=== PATIENT | female | born 1945 | race Two or more races ===

== ENCOUNTER 2024-08-30 17:46 | Inpatient (IN) | payer OTHER ==
[~2024-08-30] VITALS: Ht 162.6 cm; Wt 159.7 kg
--- NOTE | 2024-08-30 18:07 | NUR ---
SE RECIBE PACIENTE ALERTA Y ORIENTADA X3 EN AMBULANCIA; LA MISMA INDICA QUE COMENZO A SANGRAR POR EL SENO DERECHO MIENTRAS LE REALIZABAN EL CAMBIO DE VENDAJE. EN ADICION REFIERE TENER LA PRESION NILA. PARAMEDICO INDICA QUE SE ADMINSITRO VASOTEC 2.5 MG. PACIENTE DE MONK JONES
[2024-08-30] MEDS ORDERED: MEPERIDINE HCL/PF 25 MG/ML VIAL IV PRN (19:00)
[2024-08-30] MEDS ORDERED: 0.9 % SODIUM CHLORIDE 1,000 ML IV SCH (19:00)
[2024-08-30] MEDS ORDERED: AMINOCAPROIC ACID 250 MG/ML VIAL IV STA (19:00)
[2024-08-30] MEDS ORDERED: CLONAZEPAM 1 MG TABLET PO SCH (21:00)
[2024-08-30 21:58] LABS: HEMATOCRIT 31.6 % (36.0-45.00); HEMOGLOBIN 10.6 g/dL (12.0-15.00); MEAN CELL VOLUME 88.1 fL (80.00-100.00); MEAN CORPUSCULAR HEMOGLOBIN 29.5 pg (27.00-32.0); MEAN CORPUSCULAR HGB CONC 33.5 g/dl (32.0-36.0); PLATELET COUNT 272 K/uL (150-450); RED BLOOD COUNT 3.59 M/uL (4.00-6.00); RED CELL DISTRIBUTION WIDTH 17.5 % (11.5-14.5)
[2024-08-30 22:18] LABS: PARTIAL THROMBOPLASTIN TIME 25.8 SECONDS (22.0-34.0); PROTHROMBIN TIME 10.9 SECONDS (9.0-11.5)
[2024-08-30 22:20] LABS: CALCIUM 9.6 mg/dL (8.5-10.1); CREATININE SERUM 0.61 mg/dL (0.55-1.02); GFR 94.86; POTASSIUM 4.08 mEq/L (3.5-5.1)
[2024-08-31] MEDS ORDERED: AMINOCAPROIC ACID 250 MG/ML VIAL IV SCH (01:00)
[2024-08-31 08:17] VITALS: BP 123/73; O2SAT 96
[2024-08-31] MEDS ORDERED: SOD FERRIC GLUC COMPLX/SUCROSE 125 MG in 0.9 % SODIUM CHLORIDE 100 ML IV SCH (09:00)
[2024-08-31] MEDS ORDERED: AMINOCAPROIC ACID 20 MG/ML ML IV SCH (17:00)
[2024-08-31 17:12] VITALS: BP 127/70
[2024-09-01 01:49] VITALS: BP 114/64; O2SAT 96
[2024-09-01 07:50] VITALS: BP 116/66; O2SAT 97
[2024-09-01] MEDS ORDERED: CIPROFLOXACIN IN 5 % DEXTROSE 400 MG/200 ML PIGGYBAG IV STA (15:30)
[2024-09-01 16:55] VITALS: BP 137/73
[2024-09-01] MEDS ORDERED: CIPROFLOXACIN IN 5 % DEXTROSE 400 MG/200 ML PIGGYBAG IV SCH (17:00)
[2024-09-01] MEDS ORDERED: TEMAZEPAM 15 MG CAPSULE PO SCH (21:00)
[2024-09-02 03:00] VITALS: BP 126/76; O2SAT 95
[2024-09-02 08:15] VITALS: BP 110/65
[2024-09-02 16:21] VITALS: BP 162/81; O2SAT 98
[2024-09-02] MEDS ORDERED: VANCOMYCIN HCL 1,000 MG VIAL IV SCH (21:00)
[2024-09-03] MEDS ORDERED: CIPROFLOXACIN IN 5 % DEXTROSE 400 MG/200 ML PIGGYBAG IV SCH (01:00)
[2024-09-03 01:33] VITALS: BP 139/82; O2SAT 98
[2024-09-03 08:39] LABS: HEMATOCRIT 26.1 % (36.0-45.00); MEAN CELL VOLUME 89.7 fL (80.00-100.00); MEAN CORPUSCULAR HGB CONC 34.6 g/dl (32.0-36.0); PLATELET COUNT 251 K/uL (150-450); RED BLOOD COUNT 2.91 M/uL (4.00-6.00); RED CELL DISTRIBUTION WIDTH 16.6 % (11.5-14.5)
[2024-09-03 08:45] VITALS: BP 119/75
[2024-09-03 09:12] LABS: ALBUMIN 2.7 gm/dL (3.4-5.0); BILIRUBIN TOTAL 0.34 mg/dL (0.3-1.2); CALCIUM 8.3 mg/dL (8.5-10.1); CREATININE SERUM 0.53 mg/dL (0.55-1.02); GFR 111.57; GLOBULINA 3.2 G/DL (2.4-3.5); MAGNESIUM 1.7 mg/dL (1.8-2.4); PHOSPHOROUS 3.6 mg/dL (2.5-4.9); POTASSIUM 4.06 mEq/L (3.5-5.1); TOTAL PROTEIN 5.9 gm/dL (6.4-8.2)
[2024-09-03 09:21] LABS: C-REACTIVE PROTEIN 0.98 MG/DL (0.00-0.29)
[2024-09-03 16:39] VITALS: BP 124/72
[2024-09-03] MEDS ORDERED: AMPICILLIN SODIUM/SULBACTAM NA 3,000 MG in 0.9 % SODIUM CHLORIDE 100 ML IV SCH (17:00)
[2024-09-04 01:42] VITALS: BP 106/51; O2SAT 98
[2024-09-04 09:43] VITALS: BP 144/71; O2SAT 98
[2024-09-04] MEDS ORDERED: CHLORHEXIDINE GLUCONATE 120 ML BOTTLE TOP SCH (17:00)
[2024-09-04] MEDS ORDERED: MUPIROCIN 22 GM OINT..GM TUBE NASAL SCH (17:00)
[2024-09-04 17:33] VITALS: BP 139/70
[2024-09-05 03:51] VITALS: BP 128/62
[2024-09-05 09:28] VITALS: BP 116/63
[2024-09-05 18:09] VITALS: BP 131/73
[2024-09-06 02:23] VITALS: BP 125/70; O2SAT 96
[2024-09-06 05:52] LABS: ALBUMIN 2.7 gm/dL (3.4-5.0); BILIRUBIN TOTAL 0.26 mg/dL (0.3-1.2); CALCIUM 8.9 mg/dL (8.5-10.1); CREATININE SERUM 0.6 mg/dL (0.55-1.02); GFR 96.68; GLOBULINA 3.3 G/DL (2.4-3.5); MAGNESIUM 1.6 mg/dL (1.8-2.4); PHOSPHOROUS 3.2 mg/dL (2.5-4.9); POTASSIUM 4.07 mEq/L (3.5-5.1)
[2024-09-06 05:53] LABS: C-REACTIVE PROTEIN 0.54 MG/DL (0.00-0.29)
[2024-09-06 06:04] LABS: HEMATOCRIT 27.7 % (36.0-45.00); HEMOGLOBIN 9.2 g/dL (12.0-15.00); MEAN CORPUSCULAR HGB CONC 33.4 g/dl (32.0-36.0); PLATELET COUNT 281 K/uL (150-450); RED BLOOD COUNT 3.07 M/uL (4.00-6.00); RED CELL DISTRIBUTION WIDTH 16.5 % (11.5-14.5)
[2024-09-06 09:26] VITALS: BP 120/72; O2SAT 98
[2024-09-06] MEDS ORDERED: MAGNESIUM SULFATE/D5W 100 ML IV NR (16:45)
[2024-09-06 17:56] VITALS: BP 160/89; O2SAT 100
[2024-09-07 01:54] VITALS: BP 159/84
[2024-09-07] MEDS ORDERED: AMPICILLIN SODIUM/SULBACTAM NA 3,000 MG VIAL ONE (07:51)
[2024-09-07 09:10] VITALS: BP 116/63; O2SAT 97
[2024-09-07 17:53] VITALS: BP 135/73
[2024-09-08 02:07] VITALS: BP 123/67; O2SAT 95
[2024-09-08 08:26] LABS: HEMATOCRIT 29.2 % (36.0-45.00); HEMOGLOBIN 9.9 g/dL (12.0-15.00); MEAN CELL VOLUME 88.9 fL (80.00-100.00); MEAN CORPUSCULAR HEMOGLOBIN 30.3 pg (27.00-32.0); MEAN CORPUSCULAR HGB CONC 34.1 g/dl (32.0-36.0); PLATELET COUNT 362 K/uL (150-450); RED BLOOD COUNT 3.29 M/uL (4.00-6.00); RED CELL DISTRIBUTION WIDTH 16.6 % (11.5-14.5)
[2024-09-08 09:02] LABS: CREATININE SERUM 0.63 mg/dL (0.55-1.02); GFR 91.39; MAGNESIUM 1.9 mg/dL (1.8-2.4); PHOSPHOROUS 3.8 mg/dL (2.5-4.9); POTASSIUM 4.29 mEq/L (3.5-5.1)
[2024-09-08 09:43] VITALS: BP 113/76; O2SAT 98
[2024-09-08 18:25] VITALS: BP 148/81
[2024-09-09 01:59] VITALS: BP 137/80; O2SAT 98
[2024-09-09 09:23] VITALS: BP 132/88; O2SAT 98
[2024-09-09 17:59] VITALS: BP 128/76; O2SAT 98
[2024-09-10 00:46] VITALS: BP 128/68; O2SAT 98
[2024-09-10 08:32] VITALS: BP 131/68
[2024-09-10 17:54] VITALS: BP 138/75
[2024-09-11 02:55] VITALS: BP 125/65
[2024-09-11 08:30] VITALS: BP 107/75
[2024-09-11 17:39] VITALS: BP 140/87; O2SAT 98
[2024-09-12 02:27] VITALS: BP 126/66; O2SAT 97
[2024-09-12 07:00] LABS: HEMATOCRIT 24.2 % (36.0-45.00); MEAN CELL VOLUME 89.6 fL (80.00-100.00); MEAN CORPUSCULAR HGB CONC 34.9 g/dl (32.0-36.0); PLATELET COUNT 268 K/uL (150-450); RED CELL DISTRIBUTION WIDTH 16.8 % (11.5-14.5)
[2024-09-12 07:24] LABS: MEAN CORPUSCULAR HEMOGLOBIN 31.1 pg (27.00-32.0)
[2024-09-12 07:25] LABS: HEMOGLOBIN 8.4 g/dL (12.0-15.00)
[2024-09-12 08:33] VITALS: BP 142/72
[2024-09-12] MEDS ORDERED: FUROsemide 20 MG/2 ML VIAL IV SCH (19:45)
[2024-09-12 21:26] VITALS: BP 145/76; O2SAT 99
[2024-09-13 01:43] VITALS: BP 142/63
[2024-09-13 09:15] VITALS: BP 137/74
[2024-09-13 17:48] VITALS: BP 160/77; O2SAT 100
[2024-09-14 02:26] VITALS: BP 138/74
[2024-09-14 07:22] LABS: HEMATOCRIT 35.8 % (36.0-45.00); HEMOGLOBIN 12.3 g/dL (12.0-15.00); MEAN CORPUSCULAR HEMOGLOBIN 29.5 pg (27.00-32.0); MEAN CORPUSCULAR HGB CONC 34.3 g/dl (32.0-36.0); PLATELET COUNT 258 K/uL (150-450); RED BLOOD COUNT 4.16 M/uL (4.00-6.00)
[2024-09-14 07:30] LABS: RED CELL DISTRIBUTION WIDTH 21.2 % (11.5-14.5)
[2024-09-14 08:22] VITALS: BP 136/85
[2024-09-14] MEDS ORDERED: ENALAPRILAT DIHYDRATE 1.25 MG/ML VIAL IV PRN (12:15)
[2024-09-14 18:18] VITALS: BP 129/74; O2SAT 97
[2024-09-14] MEDS ORDERED: CLONAZEPAM 1 MG TABLET PO ONE (22:00)
[2024-09-15 00:41] VITALS: BP 132/80; O2SAT 96
[2024-09-15 14:44] VITALS: BP 153/81
[2024-09-15 16:05] VITALS: BP 150/84; O2SAT 97
[2024-09-16 01:23] VITALS: BP 120/75; O2SAT 98
[2024-09-16 08:32] VITALS: BP 113/71; O2SAT 97
[2024-09-16 17:16] VITALS: BP 165/83
== END 2024-09-16 18:19 | disposition home or self-care (01) | DRG 599 ==
LOC: ER 17:46 → MEDI 21:20 → MEDJ 09-02 14:53
PROVIDERS: Internal Medicine Infectious Disease; ADMIT Internal Medicine Hematology & Oncology; ATTEND Internal Medicine Hematology & Oncology
PROC: 02HV33Z Insertion of Infusion Device into Superior Vena Cava, Percutaneous Approach (ICD-10-PCS; 2024-09-03)
PROC: 8E0ZXY6 Isolation (ICD-10-PCS; 2024-09-04)
PROC: B54MZZZ Ultrasonography of Right Upper Extremity Veins (ICD-10-PCS; principal; 2024-09-12)
PROC: 30233L1 Transfusion of Nonautologous Fresh Plasma into Peripheral Vein, Percutaneous Approach (ICD-10-PCS; 2024-09-13)
PROC: 30233N1 Transfusion of Nonautologous Red Blood Cells into Peripheral Vein, Percutaneous Approach (ICD-10-PCS; 2024-09-13)
DX: C50.811 Malignant neoplasm of overlapping sites of right female breast (principal); S21.001A Unspecified open wound of right breast, initial encounter; Y65.8 Other specified misadventures during surgical and medical care; Z17.0 Estrogen receptor positive status [ER+]; D50.0 Iron deficiency anemia secondary to blood loss (chronic); I10 Essential (primary) hypertension; B96.5 Pseudomonas (aeruginosa) (mallei) (pseudomallei) as the cause of diseases classified elsewhere; B95.61 Methicillin susceptible Staphylococcus aureus infection as the cause of diseases classified elsewhere

== ENCOUNTER → 2024-09-25 | Outpatient (CLI) | payer OTHER ==
[2024-09-25 10:26] LABS: HEMATOCRIT 36.9 % (36.0-45.00); HEMOGLOBIN 12.1 g/dL (12.0-15.00); MEAN CELL VOLUME 88.8 fL (80.00-100.00); MEAN CORPUSCULAR HEMOGLOBIN 29.1 pg (27.00-32.0); MEAN CORPUSCULAR HGB CONC 32.8 g/dl (32.0-36.0); PLATELET COUNT 253 K/uL (150-450); RED BLOOD COUNT 4.15 M/uL (4.00-6.00); RED CELL DISTRIBUTION WIDTH 18.5 % (11.5-14.5)
[2024-09-25 11:10] LABS: ALBUMIN 3.4 gm/dL (3.4-5.0); BILIRUBIN TOTAL 0.4 mg/dL (0.3-1.2); CALCIUM 9.6 mg/dL (8.5-10.1); CHOL HDL RATIO 2.1 (0-5.0); CREATININE SERUM 0.59 mg/dL (0.55-1.02); GFR 98.58; GLOBULINA 3.8 G/DL (2.4-3.5); POTASSIUM 4.47 mEq/L (3.5-5.1); T4 TOTAL 8.7 UG/DL (4.8-13.9); TOTAL PROTEIN 7.2 gm/dL (6.4-8.2); TSH 2.74 uIU/mL (0.358-3.74)
[2024-09-25 11:51] LABS: T3 TOTAL 1.31 ng/ml (0.846-2.02); VITAMIN D3 25 HYDROXY 36.38 ng/ml (30-120)
[2024-09-25 11:55] LABS: ob NEGATIVE (NEGATIVE)
== END | disposition home or self-care (01) ==
LOC: LAB 09:18
PROVIDERS: ATTEND Internal Medicine Cardiovascular Disease
DX: I10 Essential (primary) hypertension (principal); E11.9 Type 2 diabetes mellitus without complications; E03.9 Hypothyroidism, unspecified; E78.2 Mixed hyperlipidemia; D64.0 Hereditary sideroblastic anemia; E55.9 Vitamin D deficiency, unspecified; M81.0 Age-related osteoporosis without current pathological fracture

== ENCOUNTER → 2024-12-19 11:20 | Outpatient (CLI) | payer OTHER ==
[2024-12-19 12:00] LABS: HEMATOCRIT 28.7 % (36.0-45.00); HEMOGLOBIN 9.7 g/dL (12.0-15.00); MEAN CELL VOLUME 99.3 fL (80.00-100.00); MEAN CORPUSCULAR HEMOGLOBIN 33.6 pg (27.00-32.0); MEAN CORPUSCULAR HGB CONC 33.8 g/dl (32.0-36.0); PLATELET COUNT 320 K/uL (150-450); RED BLOOD COUNT 2.89 M/uL (4.00-6.00); RED CELL DISTRIBUTION WIDTH 19.8 % (11.5-14.5)
[2024-12-19 12:48] LABS: CALCIUM 8.9 mg/dL (8.5-10.1); CHOL HDL RATIO 2.4 (0-5.0); CREATININE SERUM 0.75 mg/dL (0.55-1.02); GFR 74.73; POTASSIUM 4.7 mEq/L (3.5-5.1)
[2024-12-19 13:07] LABS: T4 TOTAL 7.32 UG/DL (4.8-13.9); TSH 1.3 uIU/mL (0.358-3.74)
[2024-12-19 16:20] LABS: PH,URINE 5.5 (5.0-8.0); URINE APPEARANCE Clear; URINE BILIRRUBIN Negative (NEGATIVE); URINE BLOOD Negative; URINE COLOR Yellow; URINE GLUCOSE Negative (NEGATIVE); URINE KETONE Negative (NEGATIVE); URINE LEUKOCYTE Small; URINE NITRATE Negative; URINE PROTEIN Negative (NEGATIVE); URINE UROBILINOGEN 0.2 E.U./dl
[2024-12-19 16:21] LABS: URINE BACTERIA 68.5 uL (0.0-1933); URINE EPITHELIAL CELLS 4.9 uL (0.0-38.8); URINE RBC 2.6 uL (0.0-20.8)
[2024-12-19 16:51] LABS: URINE CAST 1.32 uL (0.0-1.40)
== END | disposition home or self-care (01) ==
LOC: LAB 11:20
PROVIDERS: ATTEND Internal Medicine Cardiovascular Disease
DX: E11.9 Type 2 diabetes mellitus without complications (principal); I10 Essential (primary) hypertension; E78.2 Mixed hyperlipidemia; E03.9 Hypothyroidism, unspecified

== ENCOUNTER → 2025-01-11 10:19 | Outpatient (CLI) | payer OTHER ==
[2025-01-11 11:33] LABS: EOS # 0.06 (0.04-0.54); EOS % 2.3 % (0.7-7.0); HEMATOCRIT 27.7 % (34.1-44.9); LYMPH # 0.82 (1.18-3.74); LYMPH % 31.2 % (19.3-53.1); MEAN CORPUSCULAR HEMOGLOBIN 34.2 pg (25.6-32.2); MONO % 11.4 % (4.7-12.5); NEUT # 1.28 (1.56-6.13); NEUT % 48.7 % (34.0-71.1); PLATELET COUNT 336 K/uL (163-369); RED BLOOD COUNT 2.72 M/uL (3.93-5.22); RED CELL DISTRIBUTION WIDTH 15.9 % (11.6-14.4)
[2025-01-11 11:37] LABS: BASO % 3.4 % (0.1-1.2); HEMOGLOBIN 9.3 g/dL (11.2-15.7)
[2025-01-11 12:09] LABS: ALBUMIN 3.5 gm/dL (3.4-5.0); BILIRUBIN TOTAL 0.47 mg/dL (0.3-1.2); CALCIUM 8.7 mg/dL (8.5-10.1); CREATININE SERUM 0.86 mg/dL (0.55-1.02); GFR 63.82; GLOBULINA 3.6 G/DL (2.4-3.5); POTASSIUM 4.99 mEq/L (3.5-5.1); TOTAL PROTEIN 7.1 gm/dL (6.4-8.2)
== END | disposition home or self-care (01) ==
LOC: LAB 10:19
PROVIDERS: ATTEND Internal Medicine Hematology & Oncology
DX: D64.9 Anemia, unspecified (principal); R74.01 Elevation of levels of liver transaminase levels; C50.812 Malignant neoplasm of overlapping sites of left female breast

== ENCOUNTER 2025-02-06 07:39 | Outpatient (CLI) | payer OTHER | END 2025-02-06 07:40 | disposition home or self-care (01) | LOC: NUCLEAR 07:39 | PROVIDERS: ATTEND Internal Medicine Hematology & Oncology | DX: C50.811 Malignant neoplasm of overlapping sites of right female breast (principal); C77.3 Secondary and unspecified malignant neoplasm of axilla and upper limb lymph nodes; C79.51 Secondary malignant neoplasm of bone | CPT/HCPCS: 78815; A9552 ==